=== PATIENT | female | born 1950 | race Caucasian/White ===

== ENCOUNTER 2021-10-05 08:00 | Outpatient (CLI) | payer MEDICARE ==
[2021-10-05 16:23] LABS: BASOPHILS # (AUTO) 0.1 10^3/uL (0.0-0.1); BASOPHILS % (AUTO) 0.8 %; EOSINOPHILS # (AUTO) 0.1 10^3/uL (0.0-0.7); EOSINOPHILS % (AUTO) 1.2 %; HCT - HEMATOCRIT 38.4 % (37.0-47.0); HGB - HEMOGLOBIN 11.8 g/dL (12.0-16.0); LYMPHOCYTES # (AUTO) 1.8 10^3/uL (1.5-3.5); MEAN CORPUSCULAR HGB CONC 30.7 g/dL (32.0-36.0); MEAN CORPUSCULAR VOLUME 94.3 fL (81.0-99.0); MONOCYTES # (AUTO) 0.3 10^3/uL (0.0-1.0); MONOCYTES % (AUTO) 4.3 %; NEUTROPHILS # (AUTO) 4.9 10^3/uL (1.5-6.6); NEUTROPHILS % (AUTO) 68.4 %; PLT - PLATELET COUNT 177 10^3/uL (130-450); RED BLOOD COUNT 4.07 10^6/uL (4.20-5.40); RED CELL DISTRIBUTION WIDTH 13.5 % (12.0-15.0); WHITE BLOOD COUNT 7.2 x10^3/uL (4.8-10.8)
[2021-10-05 16:42] LABS: ALBUMIN 4.1 g/dL (3.2-5.5); ALBUMIN/GLOBULIN RATIO 1.3 (1.0-2.2); ALKALINE PHOSPHATASE 71 IU/L (42-121); ALT ALANINE AMINOTRANSFERASE 65 IU/L (10-60); AST ASPARTATE AMINOTRANSFERASE 41 IU/L (10-42); BILIRUBIN,TOTAL 0.6 mg/dL (0.2-1.0); BUN - BLOOD UREA NITROGEN 22 mg/dL (6-20); CALCIUM 9.1 mg/dL (8.5-10.3); CARBON DIOXIDE - CO2 22 mmol/L (21-32); CHLORIDE 103 mmol/L (101-111); CHOL/HDL RATIO 5.1 (<4.4); CHOLESTEROL 205 mg/dL; CREATININE 0.9 mg/dL (0.4-1.0); GFR - MDRD 62 (>89); GLUCOSE 92 mg/dL (70-100); HDL CHOLESTEROL 40 mg/dL; LDL CHOLESTEROL,CALCULATED 140 mg/dL; LDL/HDL RATIO 3.5 (<4.4); POTASSIUM 4.4 mmol/L (3.5-5.0); SODIUM 136 mmol/L (135-145); TOTAL PROTEIN 7.3 g/dL (6.7-8.2); TRIGLYCERIDES 125 mg/dL; VLDL CHOLESTEROL 25 mg/dL
[2021-10-05 17:48] LABS: ESTIMATED AVERAGE GLUCOSE 126 mg/dL (70-100)
[2021-10-06 12:27] LABS: HEPATITIS C ANTIBODY NON-REACTIVE (NON-REACTIVE)
[2021-10-07 14:16] LABS: NIL 0.02 IU/mL
== END 2021-10-05 23:59 | disposition home or self-care (01) ==
LOC: LAB.R 08:00
PROVIDERS: ATTEND Internal Medicine
DX: K21.9 Gastro-esophageal reflux disease without esophagitis (principal); R03.0 Elevated blood-pressure reading, without diagnosis of hypertension; J45.909 Unspecified asthma, uncomplicated; Z11.1 Encounter for screening for respiratory tuberculosis; Z13.6 Encounter for screening for cardiovascular disorders; Z11.59 Encounter for screening for other viral diseases; Z83.3 Family history of diabetes mellitus; Z79.899 Other long term (current) drug therapy
CPT/HCPCS: 80053; 80061; 83036; 83721; 84443; 85025; 86480; 86803

== ENCOUNTER 2023-03-08 10:16 | Outpatient (CLI) | payer MEDICARE ==
[2023-03-08 10:33] LABS: BASOPHILS % (AUTO) 0.6 %; EOSINOPHILS # (AUTO) 0.2 10^3/uL (0.0-0.7); EOSINOPHILS % (AUTO) 2.4 %; HCT - HEMATOCRIT 45.1 % (37.0-47.0); HGB - HEMOGLOBIN 14.5 g/dL (12.0-16.0); LYMPHOCYTES # (AUTO) 2.3 10^3/uL (1.5-3.5); LYMPHOCYTES % (AUTO) 33.7 %; MEAN CORPUSCULAR HEMOGLOBIN 28.3 pg (27.0-31.0); MEAN CORPUSCULAR HGB CONC 32.2 g/dL (32.0-36.0); MEAN CORPUSCULAR VOLUME 88.1 fL (81.0-99.0); MEAN PLATELET VOLUME 9.3 fL (7.9-10.8); MONOCYTES # (AUTO) 0.4 10^3/uL (0.0-1.0); MONOCYTES % (AUTO) 6.2 %; NEUTROPHILS # (AUTO) 3.9 10^3/uL (1.5-6.6); NEUTROPHILS % (AUTO) 56.8 %; PLT - PLATELET COUNT 318 10^3/uL (130-450); RED BLOOD COUNT 5.12 10^6/uL (4.20-5.40); RED CELL DISTRIBUTION WIDTH 13.7 % (12.0-15.0); WHITE BLOOD COUNT 6.9 x10^3/uL (4.8-10.8)
[2023-03-08 10:41] LABS: ALBUMIN 4.3 g/dL (3.2-5.5); ALBUMIN/GLOBULIN RATIO 1.4 (1.0-2.2); ALKALINE PHOSPHATASE 72 IU/L (42-121); ALT ALANINE AMINOTRANSFERASE 25 IU/L (10-60); AST ASPARTATE AMINOTRANSFERASE 20 IU/L (10-42); BILIRUBIN,TOTAL 0.7 mg/dL (0.2-1.0); BUN - BLOOD UREA NITROGEN 12 mg/dL (6-20); CALCIUM 9.4 mg/dL (8.5-10.3); CARBON DIOXIDE - CO2 26 mmol/L (21-32); CHLORIDE 106 mmol/L (101-111); CHOL/HDL RATIO 3.9 (<4.4); CHOLESTEROL 189 mg/dL; CREATININE 0.8 mg/dL (0.6-1.3); GFR - MDRD 70 (>89); GLUCOSE 102 mg/dL (74-104); HDL CHOLESTEROL 48 mg/dL; LDL CHOLESTEROL,CALCULATED 114 mg/dL; LDL/HDL RATIO 2.4 (<4.4); POTASSIUM 3.9 mmol/L (3.5-4.5); SODIUM 138 mmol/L (135-145); TOTAL PROTEIN 7.4 g/dL (6.4-8.9); TRIGLYCERIDES 133 mg/dL (48-352); VLDL CHOLESTEROL 27 mg/dL
[2023-03-08 10:57] LABS: THYROID STIMULATING HORMONE 2.42 uIU/mL (0.34-5.60)
[2023-03-08 13:15] LABS: ESTIMATED AVERAGE GLUCOSE 128 mg/dL (70-100); HEMOGLOBIN A1c% 6.1 % (4.27-6.07)
== END 2023-03-08 10:17 | disposition home or self-care (01) ==
LOC: LAB 10:16
PROVIDERS: ATTEND Internal Medicine
DX: Z00.00 Encounter for general adult medical examination without abnormal findings (principal); F32.A Depression, unspecified; R06.00 Dyspnea, unspecified; R74.8 Abnormal levels of other serum enzymes; K21.9 Gastro-esophageal reflux disease without esophagitis; R41.3 Other amnesia; R73.03 Prediabetes; J45.909 Unspecified asthma, uncomplicated; Z79.899 Other long term (current) drug therapy
CPT/HCPCS: 36415; 80053; 80061; 82607; 83036; 83721; 84443; 85025

== ENCOUNTER 2023-03-20 13:58 | Outpatient (CLI) | payer MEDICARE ==
--- NOTE | 2023-03-20 16:13 | XRAY Report ---
PROCEDURE: Chest 2 View X-Ray INDICATIONS: DYSPNA TECHNIQUE: 2 views of the chest were acquired. COMPARISON: None. FINDINGS: Surgical changes and devices: None. Lungs and pleura: No pleural effusions or pneumothorax. Lungs are clear. Mediastinum: Mediastinal contours appear normal. Heart size is normal. Bones and chest wall: No suspicious bony lesions. Overlying soft tissues appear unremarkable. IMPRESSION: No acute cardiopulmonary process. Reviewed by: Rudy Trevino on 03/20/2023 4:11 PM PDT Approved by: Rudy Trevino on 03/20/2023 4:11 PM PDT Station ID: [id number]
== END 2023-03-20 13:59 | disposition home or self-care (01) ==
LOC: DI.S 13:58
PROVIDERS: ATTEND Internal Medicine
DX: R06.00 Dyspnea, unspecified (principal)

== ENCOUNTER 2023-03-20 13:58 | Outpatient (CLI) | payer MEDICARE ==
--- NOTE | 2023-03-21 12:05 | Mammography Report ---
BILATERAL DIGITAL SCREENING MAMMOGRAM 3D/2D WITH EXAGGERATED CC: 03/20/2023 CLINICAL: Routine screening. Family history of breast cancer. Baseline exam. No prior exams were available for comparison. Both breasts are almost entirely fatty (category a/<25% glandular tissue). No significant masses, calcifications, or other findings are seen in either breast. IMPRESSION: NEGATIVE There is no mammographic evidence of malignancy. A 1 year screening mammogram is recommended. Based on the Tyrer Cuzick model (a risk assessment model) the patients lifetime risk is 2.8% and her 10 year risk is 2.3%. According to the ACR, ACS, and NCCN guidelines, an annual breast MRI exam elisabeth g with mammogram is recommended if the patients lifetime risk is 20% or greater. This exam was interpreted at Station ID: [id number]. NOTE: For mammograms, a report in lay terms will be sent to the patient. Approximately 15% of breast malignancies will not be visualized mammographically. In the management of a palpable breast mass, a negative mammogram must not discourage biopsy of a clinically suspicious lesion. Electronically Signed By: Allie [email or web address]:03/20/2023 21:18:25 letter sent: No_Letter ACR BI-RADS Category 1: Negative 3341F PARENCHYMAL PATTERN: (F) - The breast(s) demonstrate(s) diffuse fatty replacement. BI-RADS CATEGORY: (1) - 1 Mammogram [id number] 1 year screening LATERALITY: (B)
== END 2023-03-20 13:59 | disposition home or self-care (01) ==
LOC: DI.S 13:58
PROVIDERS: ATTEND Internal Medicine
DX: Z12.31 Encounter for screening mammogram for malignant neoplasm of breast (principal); Z80.3 Family history of malignant neoplasm of breast

== ENCOUNTER 2023-05-13 09:27 | Outpatient (CLI) | payer MEDICARE ==
[2023-05-13] MEDS ORDERED: ALBUTEROL 1 PUFF INH STA (10:21)
== END 2023-05-13 09:28 | disposition home or self-care (01) ==
LOC: RT 09:27
PROVIDERS: ATTEND Internal Medicine
DX: R06.00 Dyspnea, unspecified (principal)
CPT/HCPCS: 94060